=== PATIENT | female | born 1965 | race African-American/Black ===

== ENCOUNTER 2016-06-24 12:23 | Emergency (ER) | payer MEDICAID ==
[~2016-06-24] VITALS: Ht 170.2 cm; Wt 69.0 kg
[~2016-06-24 12:23] MED LIST: BACT800T5 PO; ROBA750T PO
[2016-06-24 12:28] VITALS: BP 130/66; PULSE 91; RESP 16; TEMP 98.7; O2SAT 100
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
[2016-06-24] MEDS ORDERED: SODIUM CHLORIDE 0.9% FLUSH 5 ML FLUSH IVF PRN (13:30)
[2016-06-24 13:54] VITALS: O2SAT 99
--- NOTE | 2016-06-24 14:45 | RADRPT ---
EXAM DATE/TIME: 06/24/2016 14:33 [facility] COMPARISON: No previous studies available for comparison. INDICATIONS : Trauma. Slip and fall. Altered mental status. RADIATION DOSE: 57.76 CTDIvol (mGy) MEDICAL HISTORY : None SURGICAL HISTORY : Hernia repair. ENCOUNTER: Initial ACUITY: 1 day PAIN SCALE: 5/10 LOCATION: cranial TECHNIQUE: Multiple contiguous axial images were obtained of the head. Using automated exposure control and adj ustment of the mA and/or kV according to patient size, radiation dose was kept as low as reasonably a chievable to obtain optimal diagnostic quality images. FINDINGS: CEREBRUM: The ventricles are normal for age. No evidence of midline shift, mass lesion, hemorrhage or acute in farction. No extra-axial fluid collections are seen. POSTERIOR FOSSA: The cerebellum and brainstem are intact. The 4th ventricle is midline. The cerebellopontine angle i s unremarkable. EXTRACRANIAL: The visualized portion of the orbits is intact. SKULL: The calvaria is intact. No evidence of skull fracture. CONCLUSION: Normal examination. Ashish Craven Jr., MD on June 24, 2016 at 14:41 Board Certified Radiologist. This report was verified electronically.
--- NOTE | 2016-06-24 15:09 | RADRPT ---
EXAM DATE/TIME: 06/24/2016 14:33 [facility] COMPARISON: No previous studies available for comparison. INDICATIONS : Trauma. Slip and fall. Altered mental status. RADIATION DOSE: 28.43 CTDIvol (mGy) MEDICAL HISTORY : None SURGICAL HISTORY : Hernia repair. ENCOUNTER: Initial ACUITY: 1 day PAIN SCALE: 4/10 LOCATION: neck TECHNIQUE: Volumetric scanning of the cervical spine was performed. Multiplanar reconstructions in the sagittal, coronal and oblique axial planes were performed. Using automated exposure control and adjustment o f the mA and/or kV according to patient size, radiation dose was kept as low as reasonably achievable to obtain optimal diagnostic quality images. FINDINGS: Bony structures are intact and normally aligned no fracture, compression, subluxation, or destructive change. Odontoid is in relationship to the arch of C1 with foraminal endplate and negative upper tho racic spine. Multilevel degenerative changes are noted C3-C7 there is C6-7 disc space with anterior m arginal spurring and posterior aspect this complexes at C4-C7 most prominent at C6-7. CONCLUSION: Multilevel degenerative changes. No acute bone injury. Hardeep Lamas MD on June 24, 2016 at 15:05 Board Certified Radiologist. This report was verified electronically.
--- NOTE | 2016-06-24 15:13 | RADRPT ---
EXAM DATE/TIME: 06/24/2016 14:39 [facility] COMPARISON: No previous studies available for comparison. INDICATIONS : Trauma. Slip and fall. RADIATION DOSE: 35.20 CTDIvol (mGy) ; Combined studies - Thoracic Spine/Lumbar Spine MEDICAL HISTORY : None SURGICAL HISTORY : Hernia repair. ENCOUNTER: Initial ACUITY: 1 day PAIN SCALE: 5/10 LOCATION: Thoracic spine. TECHNIQUE: Volumetric scanning of the thoracic spine was performed. Multiplanar reconstructions in the sagittal, coronal and oblique axial planes were performed. Using automated exposure control a nd adjustment of the mA and/or kV according to patient size, radiation dose was kept as low as reason ably achievable to obtain optimal diagnostic quality images. FINDINGS: The vertebral bodies of the thoracic spine are in normal alignment without evidence of subluxation. Vertebral body height is maintained. No fractures are seen. T1-T2: Normal. T2-T3: The thecal sac has a normal diameter. No evidence of disc bulge or protrusion. T3-T4: The thecal sac has a normal diameter. No evidence of disc bulge or protrusion. T4-T5: The thecal sac has a normal diameter. No evidence of disc bulge or protrusion. T5-T6: The thecal sac has a normal diameter. No evidence of disc bulge or protrusion. T6-T7: The thecal sac has a normal diameter. No evidence of disc bulge or protrusion. T7-T8: The thecal sac has a normal diameter. No evidence of disc bulge or protrusion. T8-T9: The thecal sac has a normal diameter. No evidence of disc bulge or protrusion. T9-T10: The thecal sac has a normal diameter. No evidence of disc bulge or protrusion. T10-T11: The thecal sac has a normal diameter. No evidence of disc bulge or protrusion. T11-T12: The thecal sac has a normal diameter. No evidence of disc bulge or protrusion. T12-L1: The thecal sac has a normal diameter. No evidence of disc bulge or protrusion. CONCLUSION: Negative examination Hardeep Lamas MD on June 24, 2016 at 15:08 Board Certified Radiologist. This report was verified electronically.
--- NOTE | 2016-06-24 15:16 | RADRPT ---
EXAM DATE/TIME: 06/24/2016 14:39 [facility] COMPARISON: SPINE LUMBAR LTD (AP & LAT), July 05, 2013, 17:46. INDICATIONS : Trauma. Slip and fall. RADIATION DOSE: 35.20 CTDIvol (mGy) ; Combined studies - Thoracic Spine/Lumbar Spine MEDICAL HISTORY : None SURGICAL HISTORY : Hernia repair. ENCOUNTER: Initial ACUITY: 1 day PAIN SCALE: 5/10 LOCATION: Lumbar spine. TECHNIQUE: Volumetric scanning of the lumbar spine was performed. Multiplanar reconstructions in the sagittal, coronal and oblique axial planes were performed. Using automated exposure control and adjustment of the mA and/or kV according to patient size, radiation dose was kept as low as reasonably achievable t o obtain optimal diagnostic quality images. FINDINGS: VERTEBRAE: Normal vertebral body height. ALIGNMENT: No evidence of subluxation. T12-L1: The thecal sac has a normal diameter. No evidence of disc bulge or protrusion. The neural foramina are patent bilaterally. L1-L2: The thecal sac has a normal diameter. No evidence of disc bulge or protrusion. The neural foramina are patent bilaterally. L2-L3: The thecal sac has a normal diameter. No evidence of disc bulge or protrusion. The neural foramina are patent bilaterally. L3-L4: The thecal sac has a normal diameter. No evidence of disc bulge or protrusion. The neural foramina are patent bilaterally. L4-L5: The thecal sac has a normal diameter. No evidence of disc bulge or protrusion. The neural foramina are patent bilaterally. L5-S1: Degenerative disc disease is appreciated with narrow disc space and there are vacuum sign with minima l central disc bulge. CONCLUSION: Degenerative changes L5-S1 disc space. Otherwise negative with no acute bony injury. Hardeep Lamas MD on June 24, 2016 at 15:12 Board Certified Radiologist. This report was verified electronically.
--- NOTE | 2016-06-24 15:39 | RADRPT ---
EXAM DATE/TIME: 06/24/2016 15:29 [facility] COMPARISON: No previous studies available for comparison. INDICATIONS : Patient slipped and fell at the laundry mat this afternoon. MEDICAL HISTORY : None. SURGICAL HISTORY : None. ENCOUNTER: Initial ACUITY: 1 day PAIN SCORE: 10/10 LOCATION: Bilateral chest FINDINGS: PA and lateral views of the chest demonstrate the lungs to be symmetrically aerated without evidence of mass, infiltrate or effusion. The cardiomediastinal contours are unremarkable. Osseous structure s are intact. CONCLUSION: Normal examination. Hardeep Lamas MD on June 24, 2016 at 15:37 Board Certified Radiologist. This report was verified electronically.
[2016-06-24 16:10] LABS: AUTOMATED NEUTROPHIL # 3.3 TH/MM3 (1.8-7.7); BASOPHIL % 0.5 % (0.0-2.0); EOSINOPHIL % 0.6 % (0.0-4.0); HEMATOCRIT 41.5 % (35.0-46.0); HEMO FLAGS DIFF FINAL; LYMPHOCYTE # 3.4 TH/MM3 (1.0-4.8); MEAN CELL VOLUME 84.3 FL (80.0-100.0); MEAN CORPUSCULAR HEMOGLOBIN 29.3 PG (27.0-34.0); MEAN CORPUSCULAR HGB CONC 34.8 % (32.0-36.0); MONO % 6.6 % (0.0-8.0); NEUT % 45.3 % (16.0-70.0); PLATELET COUNT 296 TH/MM3 (150-450); RED BLOOD COUNT 4.93 MIL/MM3 (4.00-5.30); RED CELL DISTRIBUTION WIDTH 14.7 % (11.6-17.2); WHITE BLOOD COUNT 7.3 TH/MM3 (4.0-11.0)
[2016-06-24] MEDS ORDERED: NAPR500T PO (16:11)
[2016-06-24] MEDS ORDERED: ACETAMINOPHEN 500 MG CPLT PO ONE (16:15)
== END 2016-06-24 19:05 | disposition home or self-care (01) ==
LOC: NEPA 12:23
DX: M54.9 Dorsalgia, unspecified (principal); R07.89 Other chest pain; F17.210 Nicotine dependence, cigarettes, uncomplicated; W18.09XA Striking against other object with subsequent fall, initial encounter; Y93.E2 Activity, laundry; Y92.512 Supermarket, store or market as the place of occurrence of the external cause; Y99.8 Other external cause status
CPT/HCPCS: 70450; 71020; 72125; 72128; 72131; 84703; 85025

== ENCOUNTER 2016-06-27 10:56 | Emergency (ER) | payer MEDICAID ==
[~2016-06-27] VITALS: Ht 170.2 cm; Wt 72.0 kg
[~2016-06-27 10:56] MED LIST changes: -BACT800T5 PO; +NAPR500T PO; -ROBA750T PO
[2016-06-27 11:12] VITALS: BP 107/73; PULSE 98; RESP 16; TEMP 98.4; O2SAT 97
[2016-06-27] MEDS ORDERED: IBUPROFEN 600 MG TAB PO ONE (11:45)
[2016-06-27] MEDS ORDERED: CYCLOBENZAPRINE HCL 10 MG TAB PO ONE (11:45)
--- NOTE | 2016-06-27 11:45 | PD ---
HPI Chief Complaint: Musculoskeletal Complaint Time Seen by Provider: 11:39 Travel History International Travel<30 days: No Contact w/Intl Traveler<30days: No Traveled to known affect area: No History of Present Illness HPI 50-year-old Afro[place]Citizen [place] female coming in status post fall onto 22/06/2016. Patient is complaining of generalized aches and pains and stiffness in her neck , upper shoulders, back and left hip. Seen at [facility], and had CT scans of the head, neck, and thoracic spine. Patient is given a prescription for Naprosyn which the patient did not fill as it bothered her stomach. She has not been taking any medications at this time. Patient denies weakness, headache , or other acute problem. She is allergic to amoxicillin but states Naprosyn upsets her stomach. Patient does states she can take ibuprofen, and has had muscle relaxants in the past. PFSH Past Medical History Bipolar Disorder: Yes Diminished Hearing: No Headaches: Yes Immunizations Current: No ?: Not : 5 Para: 3 Miscarriage: 2 Past Surgical History Other Surgery: Yes (HERNIA REPAIR) Social History Alcohol Use: Yes (social) Tobacco Use: Yes (05/04) Substance Use: No Allergies-Medications (Allergen,Severity, Reaction): Coded Allergies: Amoxicillin (Verified Allergy, Severe, SWELLING, 06/27/16) Reported Meds & Prescriptions Reported Meds & Active Scripts Active Orphenadrine CR (Orphenadrine Citrate) 100 Mg Tab 100 Mg PO Q12HR Ibuprofen 600 Mg Tab 600 Mg PO Q6H PRN Acetaminophen Extra Strength (Acetaminophen) 500 Mg Cap 1,000 Mg PO Q6H PRN Naproxen 500 Mg Tab 500 Mg PO BID Review of Systems General / Constitutional: No: Fever Eyes: No: Visual changes HENT: No: Headaches Cardiovascular: No: Chest Pain or Discomfort Respiratory: No: Shortness of Breath Gastrointestinal: No: Abdominal Pain Genitourinary: No: Dysuria Musculoskeletal: Positive: Myalgias, Arthralgias, Limited ROM, Pain (see history present illness.), No: Weakness, Cramping Skin: No Rash Neurologic: No: Weakness Psychiatric: No: Depression Endocrine: No: Polydipsia Hematologic/Lymphatic: No: Easy Bruising Physical Exam Narrative GENERAL: Patient appears in mild to moderate distress. SKIN: Warm and dry. Normal color. Normal turgor. No signs of trauma at this time. HEAD: Atraumatic. Normocephalic. Nontender. EYES: Pupils equal and round. No scleral icterus. No injection or drainage. ENT: No nasal bleeding or discharge. Mucous membranes pink and moist. No dental injury. Pharynx is clear. NECK: Trachea midline. No JVD. Neck has soft tissue tenderness without bony tenderness or step-off. Range of motion is full and supple. CARDIOVASCULAR: Regular rate and rhythm. No murmurs gallops or rubs. RESPIRATORY: No accessory muscle use. Clear to auscultation. Breath sounds equal bilaterally. GASTROINTESTINAL: Abdomen soft, non-tender, nondistended. Hepatic and splenic margins not palpable. MUSCULOSKELETAL: Extremities without clubbing, cyanosis, or edema. No obvious deformities. Patient has generalized soft tissue tenderness along the scalenes , paraspinous muscles, trapezius, and lumbar spine. Patient complains of tenderness in the left hip with passive range of motion, but no obvious bony issues. NEUROLOGICAL: Awake and alert. No obvious cranial nerve deficits. Motor grossly within normal limits. Five out of 5 muscle strength in the arms and legs. Normal speech. PSYCHIATRIC: Appropriate mood and affect; insight and judgment normal. Data Data Last Documented VS Vital Signs Date Time Temp Pulse Resp B/P Pulse Ox O2 Delivery O2 Flow Rate FiO2 06/27/16 11:12 98.4 98 16 107/73 97 Orders Cyclobenzaprine (Flexeril) (06/27/16 11:45) Ibuprofen (Motrin) (06/27/16 11:45) [facility] Medical Decision Making Medical Screen Exam Complete: Yes Emergency Medical Condition: Yes Differential Diagnosis Fall. Soft tissue contusion. Soft tissue tenderness. Muscle spasm. Narrative Course Patient is felt to be medically stable at time of exam. Further radiographic imaging not felt necessary at this time, as the patient was fully worked up on 06/24/16. Patient is given ibuprofen 600 mg by mouth as well as 10 mg Flexeril here in the department. Patient is discharged home with a prescription for ibuprofen 600 mg every 6 hours when necessary, #40. Patient is given acetaminophen 1000 mg every 6 hours when necessary pain #60. Patient is given Norflex 100 mg twice a day when necessary muscle spasms #10. Patient is to use heat and ice and gentle stretching as discussed. Patient follow with chiropractor PCP as needed. Diagnosis Primary Impression: Fall Qualified Code: W19.XXXD - Fall, subsequent encounter Additional Impression: Muscle strain Referrals: Primary Care Physician Patient Instructions: Contusion in Adults (ED), General Instructions, Muscle Spasm (ED) Additional Instructions: Further radiographic imaging not felt necessary at this time, as the patient was fully worked up on 06/24/16. Patient is given ibuprofen 600 mg by mouth as well as 10 mg Flexeril here in the department. Patient is discharged home with a prescription for ibuprofen 600 mg every 6 hours when necessary, #40. Patient is given acetaminophen 1000 mg every 6 hours when necessary pain #60. Patient is given Norflex 100 mg twice a day when necessary muscle spasms #10. Patient is to use heat and ice and gentle stretching as discussed. Patient follow with chiropractor PCP as needed. Med/Other Pt SpecificInfo: Prescription(s) given Scripts Orphenadrine ER 12 HR (Orphenadrine CR)100 Mg Qpt119 Mg PO Q12HR #10 TAB Prov:Edgar Varela MD 06/27/16 Ibuprofen 600 Mg [id number] Mg PO Q6H PRN (Pain/Inflammation) #40 TAB Prov:Edgar Varela MD 06/27/16 Acetaminophen (Acetaminophen Extra Strength)500 Mg Cap1,000 Mg PO Q6H PRN (PAIN SCALE 4 TO 10) #60 CAP Ref 1 Prov:Edgar Varela MD 06/27/16 Disposition: 01 DISCHARGE HOME Condition: Stable Guanaco Mendez Jun 27, 2016 11:45
[2016-06-27] MEDS ORDERED: IBUP-232 PO (11:46)
[2016-06-27] MEDS ORDERED: ORPH100T99 PO (11:46)
[2016-06-27] MEDS ORDERED: EXTR500C PO (11:46)
== END 2016-06-27 12:09 | disposition home or self-care (01) ==
LOC: PHEFT 10:56
DX: T14.8 Other injury of unspecified body region (principal); W19.XXXA Unspecified fall, initial encounter
CPT/HCPCS: 99283

== ENCOUNTER 2016-08-20 07:28 | Emergency (ER) | payer MEDICAID ==
[~2016-08-20] VITALS: Ht 170.2 cm; Wt 72.7 kg
[~2016-08-20 07:28] MED LIST changes: +EXTR500C PO; +IBUP-232 PO; +ORPH100T99 PO
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
[2016-08-20 07:37] VITALS: BP 127/66; PULSE 104; RESP 18; TEMP 98.5; O2SAT 96
[2016-08-20] MEDS ORDERED: LIDOCAINE HCL 1% 20 ML VIAL INFIL ONE (07:45)
[2016-08-20] MEDS ORDERED: IBUPROFEN 600 MG TAB PO ONE (08:15)
== END 2016-08-20 09:05 | disposition home or self-care (01) ==
LOC: NEPE 07:28
DX: S01.412A Laceration without foreign body of left cheek and temporomandibular area, initial encounter (principal); S01.512A Laceration without foreign body of oral cavity, initial encounter; F31.9 Bipolar disorder, unspecified; F17.210 Nicotine dependence, cigarettes, uncomplicated; Y04.0XXA Assault by unarmed brawl or fight, initial encounter; Y93.89 Activity, other specified; Y92.9 Unspecified place or not applicable
CPT/HCPCS: 12011